=== PATIENT | female | born 1950 | race Two or more races ===

== ENCOUNTER → 2016-10-21 | Outpatient (CLI) | payer SELFPAY ==
[2016-10-21 14:06] VITALS: BP 141/79
== END | disposition home or self-care (01) ==
LOC: HBOWC 13:51
PROVIDERS: ATTEND Emergency Medicine
DX: T81.89XD Other complications of procedures, not elsewhere classified, subsequent encounter (principal); Y83.8 Other surgical procedures as the cause of abnormal reaction of the patient, or of later complication, without mention of misadventure at the time of the procedure
CPT/HCPCS: 97597

== ENCOUNTER → 2016-10-26 | Outpatient (CLI) | payer SELFPAY ==
[2016-10-26 14:11] VITALS: BP 144/94
[2016-10-26 15:25] VITALS: BP 133/79
== END | disposition home or self-care (01) ==
LOC: HBOWC 13:41
PROVIDERS: ATTEND Emergency Medicine
DX: T81.89XD Other complications of procedures, not elsewhere classified, subsequent encounter (principal); Y83.8 Other surgical procedures as the cause of abnormal reaction of the patient, or of later complication, without mention of misadventure at the time of the procedure
CPT/HCPCS: 97597